=== PATIENT | female | born 1965 | race Caucasian/White ===

== ENCOUNTER 2016-11-30 15:05 | Outpatient (CLI) | payer MEDICAID, OTHER ==
[2016-11-30 12:47] LABS: CHOL/HDL RATIO 2.6 (<4.4); CHOLESTEROL 177 mg/dL; HDL CHOLESTEROL 67 mg/dL; LDL/HDL RATIO 1.4 (<4.4); TRIGLYCERIDES 74 mg/dL; VLDL CHOLESTEROL 15 mg/dL
== END 2016-11-30 15:06 | disposition home or self-care (01) ==
LOC: LAB.WCP 15:05
PROVIDERS: ATTEND Family Medicine
DX: Z00.00 Encounter for general adult medical examination without abnormal findings (principal)
CPT/HCPCS: 36415; 80061

== ENCOUNTER 2017-02-01 10:31 | Day surgery (SDC) | payer OTHER ==
[2017-02-01] MEDS ORDERED: LACTATED RINGERS 1,000 ML IV ONE ×2 (10:58→13:26)
[2017-02-01] MEDS ORDERED: GLUCAGON 1 MG/ML VIAL IM ONE (12:15)
[2017-02-01] MEDS ORDERED: fentaNYL 100 MCG/2 ML VIAL IVP ONE (12:15)
[2017-02-01] MEDS ORDERED: ONDANSETRON 4 MG/2 ML VIAL IVP ONE (12:15)
[2017-02-01] MEDS ORDERED: MIDAZOLAM 2 MG/2 ML VIAL IVP ONE (12:15)
[2017-02-01] MEDS ORDERED: LACTATED RINGERS 500 ML IV ONE (13:29)
[2017-02-01 14:13] VITALS: BP 102/68
[2017-02-01] MEDS ORDERED: BARIUM SULFATE 397 GM ENEMA PR ONE (16:36)
--- NOTE | 2017-02-04 13:16 | XRAY Report ---
DATE OF SERVICE: 02/01/2017 DOUBLE CONTRAST BARIUM ENEMA: 02/01/2017 CLINICAL INDICATION: Incomplete colonoscopy. The barium enema tip was inserted, the balloon inflated, and double contrast barium enema was perform ed. The colon is normal in caliber. There is no evidence of polyp or constricting mass lesion. The cecum distends normally, and the appendix opacifies with contrast. IMPRESSION: No evidence of polyp or constricting mass lesion. FLUOROSCOPY TIME: 7 minutes 49 seconds; 4 spot images obtained. TD: 02/01/2017 20:06
--- NOTE | 2017-02-04 13:16 | XRAY Report ---
DATE OF SERVICE: 02/01/2017 SUPINE ABDOMEN: 02/01/2017 CLINICAL INDICATION: Incomplete colonoscopy, evaluate amount of retained gas for possible barium phillip ma. Supine view of the abdomen demonstrates a small amount of gas throughout the colon and nondilated sma ll bowel loops. IMPRESSION: Small amount of retained gas following incomplete colonoscopy. TD: 02/01/2017 19:44
== END 2017-02-01 10:32 | disposition home or self-care (01) ==
LOC: SDS 10:31
PROVIDERS: ATTEND Surgery
PROC: 0DJD8ZZ Inspection of Lower Intestinal Tract, Via Natural or Artificial Opening Endoscopic (ICD-10-PCS; principal; 2017-02-01 11:30)
DX: Z12.11 Encounter for screening for malignant neoplasm of colon (principal); Z85.3 Personal history of malignant neoplasm of breast
CPT/HCPCS: 45378; 74000; 74280; A9270; J7120

== ENCOUNTER 2018-03-17 16:43 | Outpatient (CLI) | payer BC ==
--- NOTE | 2018-03-20 09:08 | Mammography Report ---
Reason: SCREENING MAMMO Procedure Date: 03/17/2018 Accession Number: [id number] / [id number] Procedure: [facility] - Screening Mammo w/Eddy CPT Code: FULL RESULT: EXAM: Screening Mammo w/Eddy DATE: 03/17/2018 5:15 PM CLINICAL HISTORY: Personal history of treated left breast cancer in 2011. Family history breast cancer in paternal aunt. Screening. TECHNIQUE: Bilateral CC and MLO views were obtained. COMPARISON: 12/01/2016 through 07/08/2015 FINDINGS: The breasts demonstrate heterogeneously dense fibroglandular parenchyma bilaterally. Left breast: There are stable post lumpectomy changes from the posterior 12:00 breast. There are no suspicious masses, calcifications or areas of nonoperative distortion. Right breast: There are no suspicious masses, calcifications or areas of distortion. IMPRESSION: Benign findings RECOMMENDATION: Routine annual screening unless otherwise clinically indicated. BI-RADS CATEGORY 2: Benign findings STANDARD QUALIFYING STATEMENTS: 1. This examination was not reviewed with the aid of Computer-Aided Detection (CAD). 2. A negative or benign imaging report should not preclude biopsy if clinically suspicious findings are present. 3. Dense breasts may obscure an underlying neoplasm. 4. This examination was reviewed with the aid of 3D breast imaging (tomosynthesis).
== END 2018-03-17 16:44 | disposition home or self-care (01) ==
LOC: DI 16:43
DX: Z12.31 Encounter for screening mammogram for malignant neoplasm of breast (principal); Z85.3 Personal history of malignant neoplasm of breast; Z80.3 Family history of malignant neoplasm of breast
CPT/HCPCS: 77063; 77067

== ENCOUNTER 2019-10-01 15:30 | Outpatient (CLI) | payer BC ==
--- NOTE | 2019-10-02 10:09 | Mammography Report ---
BILATERAL DIGITAL SCREENING MAMMOGRAM 3D/2D: 10/01/2019 CLINICAL: Routine screening. Comparison is made to exams dated: 03/17/2018 mammogram and 12/01/2016 mammogram - Merged with [facility]. The tissue of both breasts is heterogeneously dense. This may lower the sensitivity of ma mmography. There are benign calcifications in the left breast. There also are benign post operative findings in the left breast. No significant masses, calcifications, or other findings are seen in either breast. There has been no significant interval change. IMPRESSION: BENIGN There is no mammographic evidence of malignancy. A 1 year screening mammogram is recommended. This exam was interpreted at Station ID: [id number]. NOTE: For mammograms, a report in lay terms will be sent to the patient. Approximately 15% of breast malignancies will not be visualized mammographically. In the management of a palpable breast mass, a negative mammogram must not discourage biopsy of a clinically suspicious lesion. Electronically Signed By: Steffen [email or web address]:10/02/2019 08:33:14 ACR BI-RADS Category 2: Benign Finding(s) 3342F PARENCHYMAL PATTERN: (D) - The breast(s) demonstrate(s) heterogeneously dense fibroglandular parenchy ma. BI-RADS CATEGORY: (2) - 2 RECOMMENDATION: (ANNUAL) - Recommend routine annual screening mammography. 20201001 1 year screening LATERALITY: (B)
== END 2019-10-01 15:31 | disposition home or self-care (01) ==
LOC: DI 15:30
DX: Z12.31 Encounter for screening mammogram for malignant neoplasm of breast (principal)
CPT/HCPCS: 77063; 77067

== ENCOUNTER 2020-02-29 09:23 | Outpatient (CLI) | payer BC ==
[2020-02-29 09:43] LABS: BASOPHILS % (AUTO) 1.1 %; EOSINOPHILS # (AUTO) 0.1 10^3/uL (0.0-0.7); EOSINOPHILS % (AUTO) 2.2 %; HGB - HEMOGLOBIN 13.2 g/dL (12.0-16.0); LYMPHOCYTES # (AUTO) 1.4 10^3/uL (1.5-3.5); LYMPHOCYTES % (AUTO) 37.2 %; MEAN CORPUSCULAR HEMOGLOBIN 30.7 pg (27.0-31.0); MEAN PLATELET VOLUME 9.9 fL (7.9-10.8); MONOCYTES # (AUTO) 0.3 10^3/uL (0.0-1.0); MONOCYTES % (AUTO) 8.2 %; NEUTROPHILS # (AUTO) 1.9 10^3/uL (1.5-6.6); NEUTROPHILS % (AUTO) 51.3 %; PLT - PLATELET COUNT 199 10^3/uL (130-450); RED CELL DISTRIBUTION WIDTH 12.3 % (12.0-15.0); WHITE BLOOD COUNT 3.7 x10^3/uL (4.8-10.8)
[2020-02-29 09:56] LABS: ALBUMIN 4.5 g/dL (3.2-5.5); ALBUMIN/GLOBULIN RATIO 1.5 (1.0-2.2); ALKALINE PHOSPHATASE 68 IU/L (42-121); ALT ALANINE AMINOTRANSFERASE 15 IU/L (10-60); AST ASPARTATE AMINOTRANSFERASE 19 IU/L (10-42); BILIRUBIN,TOTAL 0.9 mg/dL (0.2-1.0); BUN - BLOOD UREA NITROGEN 12 mg/dL (6-20); CALCIUM 9.3 mg/dL (8.5-10.3); CARBON DIOXIDE - CO2 27 mmol/L (21-32); CHLORIDE 104 mmol/L (101-111); CHOL/HDL RATIO 2.5 (<4.4); CHOLESTEROL 167 mg/dL; CREATININE 0.7 mg/dL (0.4-1.0); GLUCOSE 104 mg/dL (70-100); HDL CHOLESTEROL 67 mg/dL; LDL CHOLESTEROL,CALCULATED 85 mg/dL; LDL/HDL RATIO 1.3 (<4.4); SODIUM 140 mmol/L (135-145); TOTAL PROTEIN 7.5 g/dL (6.7-8.2); VLDL CHOLESTEROL 15 mg/dL
== END 2020-02-29 09:24 | disposition home or self-care (01) ==
LOC: LAB 09:23
PROVIDERS: ATTEND Internal Medicine
DX: R60.9 Edema, unspecified (principal); Z13.220 Encounter for screening for lipoid disorders
CPT/HCPCS: 36415; 80053; 80061; 83615; 83721; 85025

== ENCOUNTER 2020-03-06 07:44 | Outpatient (CLI) | payer BC ==
[2020-03-06] MEDS ORDERED: IOVERSOL 320 100 ML VIAL IVP ONE ×2 (08:03→10:21)
--- NOTE | 2020-03-06 10:23 | CT Report ---
PROCEDURE: SOFT TISSUE NECK W INDICATIONS: SOFT TISSUE SWELLING CONTRAST: IV CONTRAST: Optiray 320 ml: 100 PO CONTRAST: *NO PO CONTRAST TECHNIQUE: After the administration of intravenous contrast, 3.0 mm axial sections acquired from the sella to th e aortic arch. Additional oblique axial 3.0 mm sections acquired through the pharynx. 3 mm thick co travis reformats were generated. For radiation dose reduction, the following was used: automated exp osure control, adjustment of mA and/or kV according to patient size. COMPARISON: None. FINDINGS: Image quality: Excellent. Lymph nodes: No enlarged lymph nodes seen throughout the neck. Vessels: Visualized vasculature appears patent. Neck spaces: There have clinical concern is marked along the left supraclavicular region, as on seri es 3 image 100. No masses, lipomas, or fluid collections can be seen within this region. No enlarged lymph nodes. There is a prominent left external jugular vein seen adjacent to the marked area, howeve r. There is an apparent venous valve seen within this region, as on series 5 image 67. The oropharynx, nasopharynx, and pharynx demonstrate no mucosal lesions. The vocal cords, false voca l cords, pyriform sinuses, epiglottis, vallecula, and tongue base all appear normal. Extramucosal sp aces appear unremarkable. Glands: The parotid and submandibular glands appear normal. The thyroid is normal in size. Miscellaneous: Visualized brain and orbits appear normal. Lung apices appear clear. Superficial so ft tissues appear normal. Bones: No suspicious bony lesions. Visualized sinuses and mastoids appear unremarkable. There is m oderate disc space narrowing seen at the C5-C6 level. Milder degenerative changes are seen elsewhere. IMPRESSION: No masses are seen at the area of clinical concern. The palpable focus may be related to a prominent left external jugular vein, with a prominent venous valve, however. Reviewed by: Yovany Leblanc MD on 03/06/2020 9:22 AM [facility] Approved by: Yovany Leblanc MD on 03/06/2020 9:22 AM [facility] Station ID: [id number]
== END 2020-03-06 07:45 | disposition home or self-care (01) ==
LOC: DI 07:44
PROVIDERS: ATTEND Internal Medicine
DX: R22.1 Localized swelling, mass and lump, neck (principal)
CPT/HCPCS: 70491; Q9967

== ENCOUNTER 2020-04-11 08:58 | Outpatient (CLI) | payer BC ==
[2020-04-11] MEDS ORDERED: IOVERSOL 320 100 ML VIAL IVP ONE ×2 (09:15→11:49)
--- NOTE | 2020-04-11 12:10 | CT Report ---
PROCEDURE: CHEST W INDICATIONS: SOFT TISSUE SWELLING,INFILTRATING DUCTAL CARCINOMA CONTRAST: IV CONTRAST: Optiray 320 ml: 100 PO CONTRAST: *NO PO CONTRAST TECHNIQUE: After the administration of intravenous contrast, 5 mm thick sections acquired from the pulmonary api nico to the posterior costophrenic angles. 7 mm thick coronal MIP reformats were acquired. For radia tion dose reduction, the following was used: automated exposure control, adjustment of mA and/or kV according to patient size. COMPARISON: None. FINDINGS: Image quality: Excellent. Lungs and pleura: No acute air space opacities. There is scarring in the left upper lobe anteriorly, chronic appearing, likely related to prior radiation therapy. No pleural effusions or pneumothorax. Central and peripheral airways are patent and normal in caliber. Mediastinum: Heart size is normal. No pericardial effusion. No mediastinal or hilar adenopathy by size criteria. Thoracic aorta and central pulmonary arteries are normal in size. Esophagus is karma l in caliber. No hiatal hernia. Bones and chest wall: No suspicious bony lesions. No vertebral body compression fractures. No axil concha or supraclavicular adenopathy by size criteria. Thyroid gland is normal. Abdomen: Visualized upper abdominal solid organs appear normal. Upper abdominal bowel loops are nor mal in caliber. IMPRESSION: No evidence of metastatic disease or adenopathy of the chest. Reviewed by: Devin De La Torre on 04/11/2020 12:09 PM PST Approved by: Devin De La Torre on 04/11/2020 12:09 PM PST Station ID: [id number]
== END 2020-04-11 08:59 | disposition home or self-care (01) ==
LOC: DI 08:58
PROVIDERS: ATTEND Internal Medicine
DX: R22.2 Localized swelling, mass and lump, trunk (principal); C50.912 Malignant neoplasm of unspecified site of left female breast
CPT/HCPCS: 71260; Q9967

== ENCOUNTER 2020-10-28 14:41 | Outpatient (CLI) | payer BC ==
--- NOTE | 2020-10-29 12:00 | Mammography Report ---
BILATERAL DIGITAL SCREENING MAMMOGRAM 3D/2D: 10/28/2020 CLINICAL: Routine screening. Personal history of left breast cancer. Comparison is made to exams dated: 10/01/2019 mammogram, 03/17/2018 mammogram, 12/01/2016 mammogram, an d 01/13/2011 ultrasound - [facility]. The tissue of both breasts is heterogeneousl y dense. This may lower the sensitivity of mammography. There are benign calcifications in the left breast. There also are benign post operative findings in the left breast. No significant masses, calcifications, or other findings are seen in either breast. There has been no significant interval change. IMPRESSION: BENIGN There is no mammographic evidence of malignancy. A 1 year screening mammogram is recommended. This exam was interpreted at Station ID: [id number]. NOTE: For mammograms, a report in lay terms will be sent to the patient. Approximately 15% of breast malignancies will not be visualized mammographically. In the management of a palpable breast mass, a negative mammogram must not discourage biopsy of a clinically suspicious lesion. Electronically Signed By: Varun Amin M.D. [email or web address]/[email or web address]:10/28/2020 15:23:52 ACR BI-RADS Category 2: Benign Finding(s) 3342F PARENCHYMAL PATTERN: (D) - The breast(s) demonstrate(s) heterogeneously dense fibroglandular anderson albright. BI-RADS CATEGORY: (2) - 2 RECOMMENDATION: (ANNUAL) - Recommend routine annual screening mammography. [id number] 1 year screening LATERALITY: (B)
== END 2020-10-28 14:42 | disposition home or self-care (01) ==
LOC: DI 14:41
DX: Z12.31 Encounter for screening mammogram for malignant neoplasm of breast (principal); Z85.3 Personal history of malignant neoplasm of breast